=== PATIENT | male | born 1960 | race Hispanic/Latino ===

== ENCOUNTER 2019-11-05 16:00 | Observation (INO) | payer BC ==
[~2019-11-05] VITALS: Ht 170.2 cm; Wt 78.9 kg
[2019-11-05 16:51] LABS: BASOPHILS % (AUTO) 0.5 % (0.0-5.0); EOSINOPHILS % (AUTO) 3.1 % (0.0-8.0); HEMATOCRIT 47.9 % (42-54); LYMPHOCYTES % (AUTO) 33.8 % (21.0-51.0); MEAN CORPUSCULAR HEMOGLOBIN 30.5 pg (27.0-33.0); MEAN CORPUSCULAR HGB CONC 32.8 g/dL (32.0-36.0); MEAN CORPUSCULAR VOLUME 93.2 fL (79-99); MONOCYTES % (AUTO) 8.9 % (3.0-13.0); NEUTROPHILS % (AUTO) 53.5 % (40.0-77.0); PLATELET COUNT (AUTO) 239 K/uL (130-400); RED BLOOD CELL COUNT(AUTO) 5.14 MIL/uL (4.50-6.20); RED CELL DISTRIBUTION WIDTH 13.1 % (11.0-15.5); WHITE BLOOD COUNT (AUTO) 8.1 K/uL (4.8-10.8)
[2019-11-05 17:01] LABS: APPEARANCE,URINE Clear (CLEAR); BILIRUBIN,URINE Negative (NEGATIVE); COLOR,URINE Yellow (YELLOW); GLUCOSE, URINE (UA) Negative (NEGATIVE); KETONES,URINE Negative (NEGATIVE); LEUKOCYTE ESTERASE ,URINE Negative (NEGATIVE); NITRATE,URINE Negative (NEGATIVE); OCCULT BLOOD,URINE Negative (NEGATIVE); PROTEIN,URINE Negative (NEGATIVE); UROBILINOGEN,URINE 0.2 mg/dL (0.2-1.0)
[2019-11-05 17:04] LABS: POTASSIUM 4.3 mmol/L (3.5-5.1)
[2019-11-05 17:07] LABS: ALBUMIN 4.2 g/dL (3.5-5.0); BILIRUBIN,TOTAL 0.6 mg/dL (0.2-1.0); TOTAL PROTEIN, SERUM 7.8 g/dL (6.0-8.3)
[2019-11-05] MEDS ORDERED: IOHEXOL-350 75 ML VIAL IV ONE (17:08)
[2019-11-05 17:15] LABS: B-TYPE NATRIURETIC PEPTIDE 11 pg/mL (0-100)
[2019-11-05 17:20] LABS: CREATINE KINASE, TOTAL 67 U/L (21-232); MYOGLOBIN 19 ng/mL (10-92); TROPONIN I < 0.04 ng/mL (0.00-0.06); URIC ACID 4.8 mg/dL (2.6-7.2)
[2019-11-05] MEDS ORDERED: CLONIDINE HCL 0.1 MG TABLET PO PRN (17:45)
[2019-11-05] MEDS ORDERED: 1/2 NORMAL SALINE 1,000 ML IV SCH (17:45)
[2019-11-05] MEDS ORDERED: ONDANSETRON HCL 4 MG/2 ML VIAL IVP PRN (17:45)
[2019-11-05] MEDS ORDERED: NITROGLYCERIN 0.4 MG SL TAB SL PRN (17:45)
[2019-11-05 17:54] LABS: ERYTHROCYTE SEDIMENTATION RATE 2 MM/HR (0-20)
[2019-11-05] MEDS ORDERED: LISI10TA7 PO (18:38)
[2019-11-05 18:42] VITALS: BP 155/75
[2019-11-05 19:00] VITALS: BP 133/83
[2019-11-05] MEDS: ENOXAPARIN SODIUM 80 MG/0.8 ML SQ SCH (21:05)
--- NOTE | 2019-11-05 21:20 | NUR ---
RECEIVED CALL FROM DR. FABIANO MD STATES CT CHEST NEGATIVE FOR PE. NEW ORDERS FOR CT ABD/PELVIS WITHOUT CONTRAST AND VENOUS DOPPLER TO RIGHT LEG. PLAN FOR DISCHARGE TOMORROW. SPOKE WITH PATIENT VIA TELEPHONE, DISCUSSED POC. WILL CONT TO MONITOR.
[2019-11-05 22:59] LABS: CREATINE KINASE, TOTAL 57 U/L (21-232); MYOGLOBIN 32 ng/mL (10-92); TROPONIN I < 0.04 ng/mL (0.00-0.06)
[2019-11-05 23:00] VITALS: BP 119/76
[2019-11-06 03:00] VITALS: BP 128/77
[2019-11-06 04:29] LABS: BASOPHILS % (AUTO) 0.5 % (0.0-5.0); EOSINOPHILS % (AUTO) 3.9 % (0.0-8.0); HEMATOCRIT 44.5 % (42-54); LYMPHOCYTES % (AUTO) 35.5 % (21.0-51.0); MEAN CORPUSCULAR HEMOGLOBIN 30.9 pg (27.0-33.0); MEAN CORPUSCULAR HGB CONC 32.6 g/dL (32.0-36.0); MEAN CORPUSCULAR VOLUME 94.7 fL (79-99); MONOCYTES % (AUTO) 11.1 % (3.0-13.0); NEUTROPHILS % (AUTO) 48.7 % (40.0-77.0); PLATELET COUNT (AUTO) 207 K/uL (130-400); RED CELL DISTRIBUTION WIDTH 13.1 % (11.0-15.5); WHITE BLOOD COUNT (AUTO) 6.6 K/uL (4.8-10.8)
[2019-11-06 04:48] LABS: CARBON DIOXIDE 29 mmol/L (21-32); CHLORIDE 108 mmol/L (101-111); CREATINE KINASE, TOTAL 54 U/L (21-232); GLOMERULAR FILTR. RATE CALC 82 mL/min (>60); GLUCOSE,RANDOM 104 mg/dL (70-105); MYOGLOBIN 44 ng/mL (10-92); SODIUM SERUM 142 mmol/L (136-145); TROPONIN I < 0.04 ng/mL (0.00-0.06); UREA NITROGEN, BLOOD 24 mg/dL (7-18)
[2019-11-06 08:00] VITALS: BP 145/88
[2019-11-06] MEDS: ENOXAPARIN SODIUM 80 MG/0.8 ML SQ SCH (09:55)
[2019-11-06 12:00] VITALS: BP 146/95
== END 2019-11-06 14:30 | disposition home or self-care (01) ==
LOC: EDH 16:00 → 3CH 16:01
PROVIDERS: ADMIT Internal Medicine; ATTEND Internal Medicine
DX: R07.89 Other chest pain (principal); R06.02 Shortness of breath; M79.651 Pain in right thigh; I10 Essential (primary) hypertension; Z79.01 Long term (current) use of anticoagulants
CPT/HCPCS: 36415 ×2; 71045; 71275; 74176; 76770; 80048; 80053; 81003; 82550 ×3; 83874 ×3; 83880; 84484 ×3; 84550; 85025 ×2; 85378; 85651; 86038; 93005; 93306; 93356; 93971; 96372 ×2; 99285; G0378 ×9; J1650 ×2; Q9967